=== PATIENT | male | born 1970 | race Caucasian/White ===

== ENCOUNTER 2020-09-06 12:06 | Emergency (ER) | payer OTHER, SELFPAY ==
[2020-09-06 12:07] VITALS: BP 153/89; PULSE 99; RESP 18; TEMP 37.9; O2SAT 97; BMI 27.1
[2020-09-06 12:25] LABS: Bacteria 0 SEEN /hpf (None Seen); Mucous, Urine 0 SEEN /hpf (<or=2+); Red Blood Cells-Urine 0 SEEN /hpf (0-5); Squamous Epithelial Cells - UA 0 SEEN /hpf (0-5); White Blood Cells 0 SEEN /hpf (0-5)
[2020-09-06 12:31] LABS: Color, Urine Yellow (Yellow); Glucose, Dipstick Normal (Normal); Ketone-Dipstick 50 mg/dl (Negative); Leukocyte Esterase-Dipstick Negative /ul (Negative); Nitrite-Dipstick Negative (Negative); Occult Blood-Urine Negative /ul (Negative); Protein-Dipstick 30 mg/dl (Negative); Specific Gravity, Urine 1.025 (1.002-1.030); Urine Bilirubin Dipstick Negative (Negative); Urine Clarity Sl. Cloudy (Clear); Urine Urobilinogen 1 mg/dl (Normal)
[2020-09-06 12:33] LABS: Absolute Lymphocyte Count 0.98 X10^3/uL (0.83-4.51); Absolute Neutrophil Count 3.3 X10^3/uL (2.0-7.7); Hematocrit 46.3 % (40-54); Hemoglobin 16.2 g/dL (13.0-16.5); Lymphocyte # 0.98 X10^3/ul (4.0); Lymphocyte % 20.5 % (19-41); Mean Corpuscular Hgb 29.9 pg (27.0-32.0); Mean Corpuscular Volume 85.4 fL (80-94); Mean Platelet Vol. 10.9 fl (6.2-12.0); Monocyte# 0.47 X10^3/uL; Monocyte% 9.8 % (0-10); NRBC Flagged by Analyzer 0 % (0-5); Neutrophil # 3.32 X10^3/uL (2.7-7.7); Neutrophil % 69.5 % (47-70); Platelet Count 164 K/mm3 (150-450); RBC Distribution Width CV 11.9 % (11.6-14.6); RBC Distribution Width SD 37.2 fl (35.1-43.9); Red Blood Count 5.42 M/mm3 (4.6-6.2); White Blood Count 4.8 K/mm3 (4.4-11.0)
[2020-09-06 12:41] LABS: Anion Gap 8 (5-15); BUN 17 mg/dL (7-18); BUN/Creat Ratio 17.6 RATIO (10-20); Calcium,Total 8.6 mg/dL (8.5-10.1); Chloride 104 mmol/L (98-107); Creatinine, Serum 0.96 mg/dL (0.70-1.30); EST Glomerular Filtration Rate 88 mL/min (>60); Est Glom Filt Rate - Afr Amer 107 mL/min (>60); Estimated Creatinine Clearance 98.22 ml/min; Glucose 128 mg/dL (74-106); Potassium 3.7 mmol/L (3.5-5.1); Sodium Level 137 mmol/L (136-145)
--- NOTE | 2020-09-06 14:19 | CT_ITS ---
STUDY: CT ABDOMEN AND PELVIS WITH CONTRAST REASON FOR EXAM: Male, 49 years old. LOWER ABD PAIN X 2 WEEKS RADIATION DOSAGE (If Supplied By Facility): CTDIvol = ( 11.36 ) mGy, DLP = ( 677.32 ) mGycm TECHNIQUE: Transaxial images were obtained from the dome of the diaphragm to the symphysis pubis without oral contrast. IV 100mL Isovue-300 was administered. Sagittal and coronal images were reconstructed. Individualized dose optimization techniques were used for this CT. COMPARISON: None. FINDINGS: The visualized lung bases are unremarkable. The visualized portions of the heart are within normal limits. Normal liver. Normal gallbladder and extrahepatic biliary system. Normal spleen. Normal pancreas. Normal bilateral adrenal glands. Right renal cysts in the mid and lower poles. The largest cyst measures 3.6 cm. Normal left kidney. Normal visualized stomach. Normal small intestine. There are scattered colonic diverticula consistent with diverticulosis. The appendix is visualized and appears normal. Normal abdominal aorta. Normal inferior vena cava. Normal retroperitoneum. Normal urinary bladder. There are prostatic calcifications. There is a small umbilical hernia containing fat. Normal osseous structures. CT/Abdomen/Pelvis W IV Cont ONLY IMPRESSION: Right renal cysts. Scattered sigmoid diverticula. Electronically Signed: Trev Valle, at 14:52 EST , Service support ,
--- NOTE | 2020-09-06 15:17 | ED.DCSUM_ITS ---
History of Present Illness Chief Complaint: Abd Pain Narrative: Patient presenting for evaluation secondary to abdominal pain. Patient reports that over the course the last 2 weeks he has been dealing with abdominal pain. He states that it is in his lower abdomen, is a relatively persistent type sensation. Is been associated with decreased appetite, nausea but no vomiting. He denies any diarrhea. He does have slightly looser stools but he really has not been eating much. Denies any mucus or blood in the stool. Patient denies any night sweats or unintended weight loss. No personal history of cancer. No sick contacts. Patient was seen at urgent care today, was recommended to try taking Prilosec. Patient does not take any [id number] medications, he is prescribed thyroid medication. Review of systems otherwise negative. Past Medical History - Allergies and Home Meds Allergies/Adverse Reactions: Allergies No Known Allergies Allergy (Verified 09/06/20 12:07) Primary Care Physician: Carrie Pereyra MD [Primary Care Provider] - Prior records reviewed: Yes Past Medical History: - - Hypertension, hypothyroidism Lives: With Family Smoking Status: Never smoker Alcohol: None Drugs: None Review of Systems All systems negative except as indicated General: Denies: Chills, Fever, Sweats Eyes: Denies: Visual changes - bilaterally, Diplopia ENT: Denies: Rhinorrhea, Sore throat Cardiovascular: Denies: Chest pain, Palpitations Respiratory: Denies: Dyspnea, Cough, Dyspnea on exertion Gastrointestinal: Reports: Abdominal pain, Nausea Genitourinary: Denies: Dysuria, Hematuria, Frequency Musculoskeletal: Denies: Back pain, Extremity Pain Skin: Denies: Rash, Wounds Neurological: Denies: Headache, Weakness, Numbness Physical Exam Vital Signs/Narrative: Vital Signs Temp Pulse Resp BP Pulse Ox 09/06/20 12:07 100.2 F H 99 18 153/89 H 97 Inital Vital Signs reviewed: Yes General: Well nourished, Well developed, No Acute Distress Head: Normocephalic, Atraumatic Eyes: Perrl, EOMI ENT: Moist mucous membranes, No rhinorrhea Neck: Supple, Nontender Cardiovascular: Regular rate, Regular rhythm, No murmurs Respiratory: No distress, CTA bilaterally, Chest nontender Abdomen: Soft, Nondistended, Normal bowel sounds, Tender - Very minimal reproducible tenderness noted over the patient's entire lower abdomen with no guarding or rebound or localization. No rigidity Back: Nontender, Normal Inspection Extremities: Nontender, No edema Skin: Normal color, No rash Neurological: Alert, Oriented x3, Cranial nerves II-XII grossly intact, Normal Strength, Normal Sensation Psychological: Normal affect, Normal Mood Diagnostic/Tx/Re-eval Clinical Impression(s) from Imaging Studies Abdomen/Pelvis CT 09/06/20 14:19 IMPRESSION: Right renal cysts. Scattered sigmoid diverticula. Electronically Signed: Trev Valle, at 14:52 EST , Service support , Laboratory Data 09/06/20 09/06/20 09/06/20 12:15 12:15 12:15 WBC 4.8 RBC 5.42 Hgb 16.2 Hct 46.3 MCV 85.4 MCH 29.9 MCHC 35.0 RDW Std Deviation 37.2 RDW Coeff of Shadi 11.9 Plt Count 164 MPV 10.9 Immature Gran % (Auto) 0.200 Neut % (Auto) 69.5 Lymph % (Auto) 20.5 [place] % (Auto) 9.8 Eos % (Auto) 0.0 Baso % (Auto) 0.0 Absolute Neuts (auto) 3.3 Absolute Lymphs (auto) 0.98 Nucleated RBC % 0 Sodium 137 Potassium 3.7 Chloride 104 Carbon Dioxide 25.0 Anion Gap 8 BUN 17 Creatinine 0.96 Estim Creat Clear Calc 98.22 Est GFR (MDRD) Af Amer 107 Est GFR (MDRD) Non-Af 88 BUN/Creatinine Ratio 17.6 Glucose 128 H Calcium 8.6 Urine Color Yellow Urine Clarity Sl. Cloudy Urine pH 5.0 Ur Specific Brinkley 1.025 Urine Protein 30 H Urine Glucose (UA) Normal Urine Ketones 50 H Urine Occult Blood Negative Urine Nitrite Negative Urine Bilirubin Negative Urine Urobilinogen 1 H Ur Leukocyte Esterase Negative Urine RBC 0 SEEN Urine WBC 0 SEEN Ur Squamous Epith Cells 0 SEEN Urine Bacteria 0 SEEN Urine Mucus 0 SEEN - Medical Decision Making Patient presented secondary to abdominal pain. CBC and chemistry unremarkable, no evidence of leukocytosis or shift. Urinalysis was obtained and was found to be negative. CT abdomen and pelvis with IV contrast was ordered to rule out the possibility of an atypical presentation of diverticulitis, tumor, or other etiology. This shows diverticulosis, as well as a renal cyst but no evidence of acute inflammatory or obstructive pathology and no specific cause for the patient's abdominal pain. At this point he has a negative work-up, I feel that he is stable and appropriate for discharge. Patient has Prilosec I did recommend that he try taking that, also be sent home with a course of Bentyl. He will be given follow-up with GI should he not have resolution of his symptoms in the next 5 to 7 days. ED Disposition - Plan for ED Patient: Disposition: Home or Assisted Living Diagnosis: Abdominal pain Instructions: ED Unknown Causes of Abdominal Pain Male Prescriptions: Dicyclomine HCl [Bentyl] 20 mg PO TIDAC #20 cap Prescription Printed Referrals: Chace Amaya MD [NON-STAFF] - 1 Week if not improving
== END 2020-09-06 15:31 | disposition home or self-care (01) ==
PROVIDERS: Emergency Provider Emergency Medicine; PCP Internal Medicine
DX: R10.30 Lower abdominal pain, unspecified (principal); R11.0 Nausea; N28.1 Cyst of kidney, acquired; K57.30 Diverticulosis of large intestine without perforation or abscess without bleeding; I10 Essential (primary) hypertension; E03.9 Hypothyroidism, unspecified; Z79.899 Other long term (current) drug therapy
CPT/HCPCS: 74177; 80048; 81001; 85025; 99283; Q9967